=== PATIENT | female | born 2000 | race Caucasian/White ===

== ENCOUNTER 2021-03-01 08:46 | Emergency (ER) | payer OTHER ==
[~2021-03-01] VITALS: Ht 170.2 cm; Wt 72.6 kg
[2021-03-01] MEDS ORDERED: ATIVAN1 M1 PO (09:40)
[2021-03-01] MEDS ORDERED: ZOFRAN ODT4 MG DISSOLVE (09:40)
[2021-03-01 09:56] VITALS: BP 145/95
== END 2021-03-01 09:56 | disposition home or self-care (01) ==
LOC: M.ERS 08:46
DX: F11.23 Opioid dependence with withdrawal (principal); Z88.2 Allergy status to sulfonamides